=== PATIENT | female | born 1980 | race Caucasian/White ===

== ENCOUNTER → 2017-12-14 16:54 | Outpatient (CLI) | payer OTHER, SELFPAY ==
[2017-12-14 19:12] LABS: Basophils % 0.3 % (0.1-2.0); Eosinophils # 0.2 K/mm3 (0.0-0.4); Eosinophils % 2.9 % (0.1-12.0); Hematocrit 37.4 % (37.0-47.0); Hemoglobin 11.7 g/dL (12.2-16.2); Lymphocytes # 1.8 K/mm3 (0.7-4.5); Lymphocytes % 33.4 K/mm3 (10-50); Mean Corpuscular HGB Conc 31.2 g/dL (31.8-35.4); Mean Corpuscular Hemoglobin 26.1 pg (27.0-31.2); Mean Corpuscular Volume 83.5 fl (81-99); Mean Platelet Volume 8.1 fl (7.4-10.4); Monocytes # 0.3 K/mm3 (0.1-1.0); Monocytes % 4.9 % (1.7-9.3); Neutrophils # 3.1 K/mm3 (1.8-7.8); Neutrophils % 58.5 % (37.0-80.0); Platelet Count 277 K/mm3 (142-424); Red Blood Count 4.49 M/mm3 (4.20-5.40); Red Cell Distribution Width 14.5 % (11.5-17.5); White Blood Count 5.3 K/mm3 (4.8-10.8)
[2017-12-14 20:01] LABS: Alanine Aminotransferase 37 U/L (12-78); Albumin Level 3.5 gm/dL (3.4-5.0); Albumin/Globulin Ratio 1.1 (1.1-1.8); Alkaline Phosphatase 114 U/L (46-116); Anion Gap 10.5 mEq/L (5-15); Aspartate Amino Transferase 27 U/L (15-37); Bilirubin,Total 0.1 mg/dL (0.2-1.0); Blood Urea Nitrogen 16 mg/dL (7-18); Calcium 8.4 mg/dL (8.5-10.1); Carbon Dioxide 29 mmol/L (21.0-32.0); Chloride 107 mmol/L (98-107); Chol/HDL Ratio 2.9 (1-3.5); Cholesterol 153 mg/dL (140-200); Creatinine,Serum 0.71 mg/dL (0.55-1.02); Estimated Glomerular Filt Rate 93 ml/min (>60); GFR (African American) 112 ML/MIN (>60); Globulin 3.1 gm/dl (1.3-3.2); Glucose 124 mg/dL (74-106); HDL Cholesterol 53 mg/dL (29-89); LDL Cholesterol 82 mg/dL (0-130); Potassium 4.5 mmoL/L (3.5-5.1); Sodium 142 mmol/L (136-145); T4 (Thyroxine) 6.9 ug/dl (4.7-13.3); Thyroid Stimulating Hormone 2.54 uIU/ml (0.358-3.740); Total Protein,Serum 6.6 gm/dL (6.4-8.2); Triglycerides 91 mg/dL (30-200); VLDL Cholesterol 18 mg/dL (0-40)
[2017-12-16 11:39] LABS: Vitamin D 25 Hydroxy 8.5 ng/mL (30.0-100.0)
== END ==
PROVIDERS: Visit Provider Physician Assistant
DX: R53.83 Other fatigue (principal)
CPT/HCPCS: 80053; 80061; 82652; 84436; 84443; 85025

== ENCOUNTER 2020-06-27 16:27 | Emergency (ER) | payer OTHER, SELFPAY ==
[2020-06-27 16:42] VITALS: BP 139/78; PULSE 80; RESP 18; TEMP 36.7; O2SAT 98; BMI 58.7
[2020-06-27 17:04] VITALS: BP 139/78; PULSE 80; RESP 18; TEMP 36.7; O2SAT 98
--- NOTE | 2020-06-27 17:12 | HMH.EDUTC ---
[facility] [place] Disposition Clinical Impression: Exposure to COVID-19 virus Disposition: Home, Self-Care Condition on Discharge: Good Instructions: Preventing the Spread of Coronavirus Discharge Instructions Additional Instructions: Drink plenty of fluids. Take tylenol pain or fever. Take the medications as directed. GO TO THE ER FOR ANY WORSENING SYMPTOMS FOLLOW THE DIRECTIONS ON THE COVID-19 HAND OUT THAT WE GAVE YOU REGARDING SELF-ISOLATION UNTIL YOU KNOW YOUR COVID-19 RESULTS Referrals: Rachel Mccrary PA [Primary Care Provider] - Time of Disposition: 17:13 Medical Decision Making - Medical Records Medical records reviewed: No: I reviewed the patient's medical records. - Jett Inquiry Pt receiving controlled substance: No Vital Signs: 06/27/20 16:42 06/27/20 17:04 Temperature 98.0 F 98.0 F Temperature Source Oral Oral Pulse Rate 80 Pulse Rate [Radial] 80 Respiratory Rate 18 18 Blood Pressure 139/78 Blood Pressure [Right Arm] 139/78 Blood Pressure Mean [Right Arm] 98 Blood Pressure Source Automatic Cuff Blood Pressure Source [Right Arm] Automatic Cuff Blood Pressure Position Sitting Blood Pressure Position [Right Arm] Sitting 02 Sat by Pulse Oximetry 98 Oxygen Delivery Method Room Air Room Air [facility] [place] HPI - General Stated complaint: Want COVID teating Time Seen by Provider: 06/27/20 17:12 Mode of Arrival: Ambulatory Source of Information: Patient Limitations: No Limitations Description of Symptoms (Recalled from Triage Doc. by RN): covid test HEENT Symptoms (Recalled from RN notes): No Resp Symptoms (Recalled from RN notes): No Skin Symptoms (Recalled from RN notes): No MS Symptoms (Recalled from RN notes): No Functional Status (Recalled from RN notes): wnl - History of Present Illness Provider Complaint: She thinks that she may have been exposed to covid thru her work. She denies any symptoms. She would like to be tested to be safe. - Related Data Previous Rx's Medication Instructions Recorded omeprazole 40 mg capsule,delayed 40 mg PO DAILY #90 cap 06/27/20 release spironolactone 25 mg tablet 25 mg PO DAILY #90 tab 06/27/20 Allergies Allergy/AdvReac Type Severity Reaction Status Date / Time cephalexin [CEPHALEXIN] Allergy Unknown Verified 06/27/20 09:26 iodine [IODINE] Allergy Unknown Verified 06/27/20 09:26 Penicillins [PENICILLINS] Allergy Unknown Verified 06/27/20 09:26 Sulfa (Sulfonamide Allergy Unknown Verified 06/27/20 09:26 Antibiotics) [SULFA (SULFONAMIDE ANTIBIOTICS)] - Worker's Comp Is this a Worker's Comp case?: No [facility] History - Hepatitis A Screen Drug use history?: No High risk sexual behaviors?: No History of sexually transmitted infection?: No Currently employed?: No Childcare worker?: No Do you have indoor plumbing?: Yes Do you have electricity?: Yes Attestation statement:: This patient has been screened for Hepatitis A risk factors. I have reviewed the patient's past medical history: Yes Medical History: Reports:: Hypertension Denies:: Cancer, Diabetes Mellitus Type 1, Diabetes Mellitus Type 2, MRSA Other Surgeries: Yes: Bariatric Surgery, , Hysterectomy-Total Amputation: No Fractures: No Comment: GALLBLADDER REMOVED - Social History Smoking Status: Never smoker Alcohol Intake: never Alcohol Intake Frequency:: holidays/special occasions only Substance Use Type: denies use Occupational Status: employed Housing: house Household Members: children, spouse Family Hx:: No significant family history ROS Obtained: Yes All systems reviewed & no additional complaints - Constitutional Constitutional: Denies chills, Denies fever(s) - ENT Ears, Nose, Mouth, and Throat: Denies dizziness, Denies otalgia, Denies sore throat - Cardiovascular Cardiovascular: Denies chest pain, Denies dyspnea - Respiratory Respiratory: No chest congestion, No cough Physical Exam - General General appeara
--- NOTE | 2020-06-27 21:11 | PC.NURSE ---
Patient notified of positive COVID results for her and her daughter. Educated on strict quarantine and to treat symptoms as they come.
== END 2020-06-27 17:21 | disposition home or self-care (01) ==
PROVIDERS: Emergency Provider Nurse Practitioner Family; PCP Physician Assistant
DX: U07.1 COVID-19 (principal); I10 Essential (primary) hypertension; Z88.0 Allergy status to penicillin; Z88.2 Allergy status to sulfonamides
CPT/HCPCS: 99201; U0003

== ENCOUNTER → 2020-07-25 14:27 | Outpatient (CLI) | payer OTHER, SELFPAY ==
--- NOTE | 2020-07-25 14:31 | CA_ITS ---
APPROVED REPORT EXAM: Comprehensive 2D, Doppler, and color-flow Echocardiogram Preprint Analyst: Katie Mai RVT Ht: 5 ft 6 in Wt: 364lbs BSA: 2.58 BP: 128/99 mmHg Indications: SOA,HTN,CP,EDEMA,KELLEE,HTN,HLD,HX COVID 2D Dimensions IVSd 0.00 cm F: 0.6-1.0 PWd 4.53 cm F: 0.6 - 1.0 LVDd 0.73 cm F: 3.9 - 5.3 LVOT 1.99 cm (M/F) 1.5-2.5 M-Mode Dimensions RVDd 2.87 cm (0.9-2.6) LA Diam 4.12 cm (1.9-4.0) LVDd 4.54 cm (3.5-5.7) Ao Diam 3.32 cm (2.0-3.7) LVDs 3.02 cm (3.5-5.7) IVSd 1.21 cm (0.6-1.1) PWd 0.87 cm (0.6-1.1) EF (Teich) 62.30% FS 33.50% EDV (Teich) 94.40 mL ESV (Teich) 35.60 mL LV Diastology E Decel Time 147.00 (160-240 msec) E/A Ratio 1.4 MED E' 12.10 (< 7 cm/sec) E'/MED E' Ratio 6.70 (>14) LAT E' 14.10 (<10 cm/sec) E/LAT E' Ratio 5.75 (>14) Mitral Valve MV E Max Liam. 81.00 (40-130 cm/s) MV A Velocity 57.00 (40-130 cm/s) E/A Ratio 1.44 MV Decel. Time 147.00 (160-240 ms) MV PHT 43.00 ms Pulmonary Valve PV Peak Velocity 103.00 (50-150 cm/s) Left Ventricle Left atrium is normal size, left ventricle is normal size, left ventricle wall thickness is upper limit of the normal, there is preserved left ventricular systolic function, visually estimated ejection fraction 55% with no regional wall motion abnormality. Diastolic parameters are within normal range. Right Ventricle Right atrium is normal size, right ventricle is grossly normal with normal contractility. Aortic Valve Aortic valve is minimally thickened and fibrosed, there is no aortic stenosis or aortic insufficiency. Mitral Valve Mitral valve is grossly normal, there is mild mitral regurgitation. Tricuspid Valve Tricuspid valve is grossly normal, there is mild tricuspid regurgitation, tricuspid regurgitation jet velocity is inadequate for calculation of the right ventricular systolic pressure. Pulmonic Valve Pulmonic valve is poorly visualized. Great Vessels Aortic root is normal size. Pericardium No significant pericardial effusion noted. Conclusion 1. Normal left ventricular size, preserved left ventricular systolic function, visually estimated ejection fraction 55% with no regional wall motion abnormality, diastolic parameters are within normal range. 2. Mild mitral and tricuspid regurgitation. 3. No significant pericardial effusion noted. Electronically signed by : Gaetano Bradford, 07/29/2020 05:03:05
== END ==
PROVIDERS: PCP Physician Assistant; Visit Provider Internal Medicine
DX: R07.9 Chest pain, unspecified (principal); R06.00 Dyspnea, unspecified; I10 Essential (primary) hypertension; R60.9 Edema, unspecified; E66.9 Obesity, unspecified; G47.33 Obstructive sleep apnea (adult) (pediatric)
CPT/HCPCS: 93306

== ENCOUNTER → 2020-08-05 15:04 | Outpatient (CLI) | payer OTHER, SELFPAY ==
[2020-08-05 17:07] LABS: Chloride 103 mmol/L (98-107); Potassium 4.4 mmoL/L (3.5-5.1); Sodium 140 mmol/L (136-145)
[2020-08-05 17:10] LABS: Anion Gap 11.4 mEq/L (5-15); Blood Urea Nitrogen 12 mg/dl (7-17); Calcium 8.7 mg/dl (8.4-10.2); Carbon Dioxide 30 mmol/L (22.0-30.0); Estimated Glomerular Filt Rate 80 ml/min (>60); GFR (African American) 97 ML/MIN (>60); Glucose 76 mg/dl (74-100)
[2020-08-05 17:21] LABS: NT Pro Brain Natriuretic Pep. 46.8 pg/mL (0-125)
== END ==
PROVIDERS: Visit Provider Internal Medicine Cardiovascular Disease
DX: R06.00 Dyspnea, unspecified (principal); R07.9 Chest pain, unspecified
CPT/HCPCS: 36415; 80048; 83880

== ENCOUNTER → 2020-10-13 09:03 | Outpatient (CLI) | payer OTHER, SELFPAY ==
--- NOTE | 2020-10-13 09:03 | CT_ITS ---
PROCEDURE: CT ABDOMEN PELVIS WO/W CON CLINICAL INDICATION: right groin pain RLQ PAIN X 1-2 MONTHS 75ML ISO 370 PRIOR 07/04/17 COMPARISON: CT ABDPELW/O CT ABD PELVIS W/O CONTRAST from 07/04/2017 TECHNIQUE: IV Contrast: 75ML Isovue 370 Oral Contrast None Axial images obtained with sagittal and coronal reformats. All CT scans at the facility use one or more dose reduction, viz: automated exposure control, ma/kV adjustment per patient size (including targeted exams where dose is matched to indication, i.e. head), or iterative reconstruction technique. FINDINGS: LOWER THORAX: There is a calcified granuloma within the lingula. ABDOMEN & PELVIS: There has been a prior cholecystectomy. Spleen is enlarged at 15 cm. The liver and adrenal glands are unremarkable. No renal or ureteral calculi. Unremarkable appearing pancreas. There has been a prior gastric bypass. There are few scattered small mesenteric lymph nodes. No evidence of appendicitis. There is a mild amount of retained colonic feces in the rectosigmoid region with a few colonic diverticula noted but no evidence of diverticulitis. There has been a prior hysterectomy. There is some minimal stranding of the fat in the pelvic region on the left having a somewhat similar appearance on 07/04/2017. This may be due to post surgical change. No acute bony finding. There postsurgical changes of the anterior abdominal wall with multiple clips IMPRESSION: 1. No acute finding. No evidence of appendicitis or obstructing ureteral calculus. 2. Mild amount of retained colonic feces in the rectosigmoid region with a few scattered colonic diverticula but no evidence of diverticulitis. 3. Prior hysterectomy with mild stranding of the pelvic fat on the left nonspecific but may be due to postsurgical changes. Dictated by: Jimmy Martinez MD 10/14/2020 13:37 Jimmy Martinez MD in [facility] 10/14/2020 13:37
== END ==
PROVIDERS: PCP Physician Assistant; Visit Provider Physician Assistant
DX: R10.31 Right lower quadrant pain (principal)
CPT/HCPCS: 74178; Q9967

== ENCOUNTER → 2020-11-11 18:54 | Outpatient (CLI) | payer OTHER, SELFPAY ==
[2020-11-11 19:22] LABS: Basophils % 0.4 % (0.1-2.0); Eosinophils # 0.2 K/mm3 (0.0-0.4); Hematocrit 41.2 % (37.0-47.0); Hemoglobin 13.3 g/dL (12.2-16.2); Lymphocytes % 30.5 % (10-50); Mean Corpuscular HGB Conc 32.3 g/dL (31.8-35.4); Mean Corpuscular Hemoglobin 28.1 pg (27.0-31.2); Mean Platelet Volume 8.1 fl (7.4-10.4); Monocytes # 0.4 K/mm3 (0.1-1.0); Monocytes % 5.9 % (1.7-9.3); Neutrophils % 60.2 % (37.0-80.0); Platelet Count 282 K/mm3 (142-424); Red Blood Count 4.73 M/mm3 (4.20-5.40); Red Cell Distribution Width 14.2 % (11.5-17.5); White Blood Count 6.7 K/mm3 (4.8-10.8)
[2020-11-11 19:40] LABS: 25-OH Vitamin D, Total 17.8 ng/mL (30-100)
[2020-11-11 19:50] LABS: Coronavirus 19 IgG Antibody Positive (Negative); Coronavirus 19 IgM Antibody Negative (Negative)
[2020-11-11 19:51] LABS: Monoscreen (Rapid) Negative (Negative)
[2020-11-11 20:00] LABS: Chloride 104 mmol/L (98-107); Potassium 4.8 mmoL/L (3.5-5.1); Sodium 139 mmol/L (136-145)
[2020-11-11 20:02] LABS: Alanine Aminotransferase 29 U/L (12-78); Aspartate Amino Transferase 28 U/L (14-36); Blood Urea Nitrogen 16 mg/dl (7-17); Estimated Glomerular Filt Rate 70 ml/min (>60); GFR (African American) 84 ML/MIN (>60)
[2020-11-11 20:03] LABS: Albumin Level 4.1 g/dl (3.5-5.0); Albumin/Globulin Ratio 1.6 (1.1-1.8); Alkaline Phosphatase 94 U/L (38-126); Anion Gap 10.8 mEq/L (5-15); Bilirubin,Total 0.3 mg/dl (0.2-1.3); Carbon Dioxide 29 mmol/L (22.0-30.0); Chol/HDL Ratio 3.1 (1-3.5); Cholesterol 140 mg/dl (140-200); Globulin 2.6 g/dL (1.3-3.2); Glucose 73 mg/dl (74-100); HDL Cholesterol 45 mg/dl (40-60); Total Protein,Serum 6.7 g/dl (6.3-8.2); Triglycerides 119 mg/dl (30-150); VLDL Cholesterol 24 mg/dL (0-40)
[2020-11-11 20:09] LABS: C-Reactive Protein 8.6 mg/L (0-4)
[2020-11-11 20:14] LABS: Direct LDL Cholesterol 64.03 mg/dL (100-129)
[2020-11-11 20:19] LABS: Free T4 (Free Thyroxine) 1.04 ng/dl (0.78-2.19)
[2020-11-11 20:23] LABS: Erythrocyte Sedimentation Rate 15 mm/hr (0-20)
[2020-11-11 20:34] LABS: Thyroid Stimulating Hormone 2.89 uIU/mL (0.465-4.68)
[2020-11-14 18:38] LABS: RA Latex Turbid. <10.0 IU/mL (0.0-13.9)
== END ==
PROVIDERS: Visit Provider Physician Assistant
DX: R06.00 Dyspnea, unspecified (principal); R10.9 Unspecified abdominal pain; I10 Essential (primary) hypertension; M79.89 Other specified soft tissue disorders; E55.9 Vitamin D deficiency, unspecified; R53.83 Other fatigue; R51.9 Headache, unspecified
CPT/HCPCS: 80053; 80061; 82306; 84439; 84443; 85025; 85651; 86140; 86318; 86328; 86431

== ENCOUNTER → 2020-11-25 08:04 | Outpatient (CLI) | payer OTHER, SELFPAY ==
--- NOTE | 2020-11-25 08:04 | MR_ITS ---
PROCEDURE: MR HIP RT WO CON CLINICAL INDICATION: right groin pain ? bursitis/tendinopathy Constant pain. Symptoms [id number]. No injury. Prior CT 10-13-20. COMPARISON: CT CT ABDOMEN PELVIS WO/W CON from 10/13/2020 TECHNIQUE: Routine multiplanar multi echo sequences are performed without gadolinium enhancement. FINDINGS: There are minimal osteoarthritic changes of the hips. No fracture or dislocation. No lytic or blastic change. No evidence of avascular necrosis. No significant effusion. No abnormal fluid collections or soft tissue masses. The surrounding musculature has an unremarkable appearance. There are post hysterectomy changes. There are incidental small areas of T1 hyperintensity within the ilium on both sides and in the right ischium which show fat suppression consistent with small incidental lipomas. IMPRESSION: Mild osteoarthritic changes of the hips. No acute finding. Dictated by: Jimmy Martinez MD 11/28/2020 11:31 Jimmy Martinez MD in [facility] 11/28/2020 11:31
--- NOTE | 2020-11-25 08:56 | MM_ITS ---
PROCEDURE: MM DIG SCREENING MAMM BI W/CAD Digital Breast Tomosynthesis Included CLINICAL INDICATION: Breast cancer screening by mammogram There is a history of breast cancer in the patient's maternal great aunt. COMPARISON: This is a baseline screening exam, patient without complaints. TECHNIQUE: Standard CC and MLO images and 3D Tomosynthesis was obtained. R2 CAD reviewed. FINDINGS: The breasts are composed primarily of minimal scattered fibroglandular densities throughout each breast. There is a benign-appearing calcification near the nipple left breast. There is no suspicious lesion and no suspicious microcalcifications. IMPRESSION: Fatty type breast parenchyma with no suspicious lesions seen BI-RAD Category: 1 Negative FOLLOW-UP: 1YR 1 Year Follow-up (A letter has been sent to the patient regarding results of the study.) Dictated by: Dr. Richard Sharp MD 11/30/2020 11:04 Dr. Richard Sharp MD in [facility] 11/30/2020 11:04
== END ==
PROVIDERS: PCP Physician Assistant; Visit Provider Physician Assistant
DX: Z12.31 Encounter for screening mammogram for malignant neoplasm of breast (principal); R10.31 Right lower quadrant pain; M25.551 Pain in right hip
CPT/HCPCS: 73721; 77063; 77067

== ENCOUNTER → 2020-12-29 13:09 | Outpatient (CLI) | payer OTHER, SELFPAY ==
--- NOTE | 2020-12-29 13:17 | XR_ITS ---
PROCEDURE: XR HIP RT 2-3V W/PELVIS CLINICAL INDICATION: Rt hip pain COMPARISON: MR MR HIP RT WO CON from 11/25/2020 FINDINGS: No obvious fracture or dislocation. Study is somewhat limited technically due to patient's body habitus. No obvious lytic or blastic change. No significant degenerative change. Surgical clips are present along the lower abdominal region. IMPRESSION: No acute findings. Dictated by: Jimmy Martinez MD 12/29/2020 13:35 Jimmy Martinez MD in [facility] 12/29/2020 13:35
== END ==
PROVIDERS: PCP Physician Assistant; Visit Provider Orthopaedic Surgery
DX: M25.551 Pain in right hip (principal)
CPT/HCPCS: 73502

== ENCOUNTER 2020-12-30 11:00 | Outpatient (RCR) | payer OTHER, SELFPAY | END 2020-12-30 11:05 | disposition home or self-care (01) | LOC: PT 11:00 | PROVIDERS: PCP Physician Assistant; Visit Provider Physician Assistant | DX: R10.31 Right lower quadrant pain (principal); M25.551 Pain in right hip | CPT/HCPCS: 97010; 97014; 97035; 97110; 97163; 97164; G0283 ==

== ENCOUNTER → 2021-06-03 09:33 | Outpatient (CLI) | payer OTHER, SELFPAY | PROVIDERS: PCP Physician Assistant; Visit Provider Nurse Practitioner | DX: Z20.822 Contact with and (suspected) exposure to COVID-19 (principal) | CPT/HCPCS: C9803; U0003; U0005 ==

== ENCOUNTER → 2021-12-18 07:50 | Outpatient (CLI) | payer OTHER, SELFPAY | PROVIDERS: Visit Provider Physician Assistant | DX: Z20.822 Contact with and (suspected) exposure to COVID-19 (principal) | CPT/HCPCS: C9803; U0003; U0005 ==

== ENCOUNTER → 2022-03-15 08:47 | Outpatient (CLI) | payer OTHER, SELFPAY | PROVIDERS: PCP Physician Assistant; Visit Provider Physician Assistant | DX: Z20.822 Contact with and (suspected) exposure to COVID-19 (principal) | CPT/HCPCS: C9803; U0003; U0005 ==

== ENCOUNTER → 2022-03-26 07:52 | Outpatient (CLI) | payer OTHER, SELFPAY ==
[2022-03-26 09:04] LABS: Chloride 103 mmol/L (98-107); Potassium 3.7 mmoL/L (3.5-5.1); Sodium 138 mmol/L (136-145)
[2022-03-26 09:07] LABS: Anion Gap 6.7 mEq/L (5-15); Blood Urea Nitrogen 14 mg/dl (7-17); Calcium 8.8 mg/dl (8.4-10.2); Carbon Dioxide 32 mmol/L (22.0-30.0); Estimated Glomerular Filt Rate 110 ml/min (>60); GFR (African American) 133 ML/MIN (>60); Glucose 125 mg/dl (74-100)
[2022-03-26 09:16] LABS: NT Pro Brain Natriuretic Pep. 34.6 pg/mL (0-125)
== END ==
PROVIDERS: PCP Physician Assistant; Visit Provider Internal Medicine Cardiovascular Disease
DX: Z01.810 Encounter for preprocedural cardiovascular examination (principal); R06.02 Shortness of breath; I10 Essential (primary) hypertension; M79.89 Other specified soft tissue disorders
CPT/HCPCS: 36415; 80048; 83880; 93306

== ENCOUNTER → 2022-12-10 16:30 | Outpatient (CLI) | payer BC, SELFPAY ==
--- NOTE | 2022-12-10 16:31 | MM_ITS ---
PROCEDURE INFORMATION: Exam: MG Bilateral Screening 3D Mammography Exam date and time: 12/10/2022 4:27 PM Age: 42 years old Clinical indication: Screening examination. Her maternal aunt had breast cancer. TECHNIQUE: Imaging protocol: Bilateral Screening tomosynthesis and 2D mammography including computer-aided detection (CAD) when performed. COMPARISON: MG MM DIG SCREENING MAMM BI W/CAD 11/25/2020 9:04 AM FINDINGS: MAMMOGRAPHY: Breast composition: There are scattered areas of fibroglandular density. Mass: None. Architectural distortion: None. Calcifications: No suspicious calcifications. Asymmetric density: None. Skin thickening: None. Axillary adenopathy: None. IMPRESSION: No mammographic evidence of malignancy. Annual screening is recommended unless otherwise clinically indicated. ASSESSMENT: BI-RADS Category 1: Negative
== END ==
PROVIDERS: PCP Physician Assistant; Visit Provider Physician Assistant
DX: Z12.31 Encounter for screening mammogram for malignant neoplasm of breast (principal)
CPT/HCPCS: 77063; 77067

== ENCOUNTER 2025-04-23 15:09 | Outpatient (CLI) | payer BC, SELFPAY ==
--- OUTSIDE RECORDS SUMMARY | 2025-04-09 10:30 | XMS_ITS | Encounter Summary ---
Author Organization [facility] Address [address] [place] [address] Care Team Providers Care Business Technology Professor Name Role Phone Rachel Mccrary Primary Care Provider [phone] Encounter Details Date Type Department Care Team (Late st Contact Info) Description 04/09/2025 10:30 AM EDT Office Visit [facility] BARI[facility]RIC SURGERY [address] [facility] [address] [place] [address] Faye Hector APRN [address] [place] [address] Obesity, Class III, BMI 40-49.9 (morbid obesity) (Primary Dx); Intestinal malabsorption, unspecified type; Vitamin D deficiency; Fatigue, unspecified type; Abnormal blood level of iron Social History Tobacco Use Types Packs/Day Years Used Date Smoking Tobacco: Never Smokeless Tobacco: Never Tobacco Cessation:Counseling Given: Not Answered Alcohol Use Standard Drinks/Week Comments Not Currently 0 (1 standard drink = 0.6 oz pur e alcohol) RARE AUDIT-C Answer Date Recorded Q1: How often do you have a drink containing alc ohol? Monthly or less 02/03/2023 Q2: How many drinks containi ng alcohol do you have on a typical day when you are drinking? 1 or 2 02/03/2023 Q3: How often do you have si x or more drinks on one occasion? Never 02/03/2023 Abuse Screen Answer Date Recorded Feels Unsafe at Home or Work/School no 02/03/2023 Feels Threatened by Someone no 01/17 Does Anyone Try to Keep You From Having Contact with Others or Doing Things Outside Your Home? no 02/03/2023 Physical Signs of Abuse Present no 02/03/2023 Housing Stability Answer Date Recorded Current Living Arrangements home 01/17 Potentially Unsafe Housing Conditions Not on charo e 02/03/2023 Disabilities Answer Date Recorded Difficulty Concentrating, Remembering or Making Decisions no 02/03/2023 Difficulty Managing Errands Independently no 02/03/2023 Education Answer Date Recorded Help with school or training? Not on file Preferred Language [place] Citizen 01/27/2023 Comments No Sex and Gender Information Value Date Recorded Sex Assigned at Female 04/08/2025 12:20 PM EDT Legal Sex Female 11:57 AM EDT Gender Identity Not on file Sexual Orientation Straight 04/08/2025 12 :20 PM EDT documented as of this encounter Last Filed Vital Signs Vital Sign Reading Time Taken Comments Blood Pressure 124/70 04/09/2025 10:27 AM EDT Pulse 78 04/09/2025 10:27 AM EDT Temperature 36.7 C (98 F) 04/09/2025 10:27 AM EDT Respiratory Rate 16 04/09/2025 10:27 AM EDT Oxygen Saturation 98% 04/09/2025 10:27 AM EDT Inhaled Oxygen Concentration - - Weight 129 kg (285 lb 6.4 oz) 04/09/2025 10:27 A M EDT Height 163.8 cm (5' 4.5 ) 04/09/2025 10:27 AM ED T Body Mass Index 48.23 04/09/2025 10:27 AM EDT documented in this encounter Progress Notes * Faye Hector APRN - 04/09/2025 10:30 AM EDTAddended by: FAYE HECTOR on: 04/15/2025 10:56 AM Modules accepted: Orders * Faye Hector APRN - 04/09/2025 10:30 AM EDT [facility] Bariatric Surgery [address] [place] [address] [facility] [address] Patient Name: Cece Lee : 1980 Date of Visit: 04/09/2025 Reason for Visit: Annual Eval - 2 year postop HPI: Cece Lee is a 44 y.o. female s/p lap RNY revision w/ BPD/DS + appy 02/03/23 GDW (hx open RNY 2000 Dr. Khan). Has not been focusing on anything over the past year - Getting ??g prot/day. Does not track intake,does not prioritize protein. Eats small, frequent meals. Drinking 64 fluid oz/day- water, coffee, diet coke. Physical activity: walking 3x/wk. Denies dysphagia, reflux, nausea, vomiting, and abdominal pain. Having BM after every meal- urgent,malodorous Labs 01/17/24- low vit D, high PTH, low prealbumin (16), low calcium, low hgb. Advised to start vit D 5000u daily, increase calcium to 2400 mg daily. Taking no vitamins. Presurgery weight: 362 lbs. Current weight: 285 lbs. Total weight loss: 77 lbs. Past Medical History: Diagnosis Date Anxiety and depression Arthralgia of both knees prn tylenol, nsaids Chronic back pain PRN tylenol, nsaids; no steroids Chronic headaches Chronic RLQ pain Diarrhea Dyspepsia Endometriosis s/p lap total hysterectomy 2011 Heartburn chronic, episodic; Alkaseltezer PRN History of blood transfusion 2010 4 units prior to delivery, [facility], no reacitons History of COVID-2019 Hypertension Iron deficiency anemia hx of blood transfusion Numbness and tingling of both upper extremities KELLEE on CPAP PCOS (polycystic ovarian syndrome) S/P laparoscopic cholecystectomy 2002 gallstones Stress incontinence of urine Past Surgical History: Procedure Laterality Date APPENDECTOMY N/A 02/03/2023 Procedure: INCIDENTAL APPENDECTOMY LAPAROSCOPIC; Surgeon: Julius Ventura MD; Location: [facility]; Service: General; Laterality: N/A; SECTION 2006 SECTION 2008 SECTION 2009 ENDOSCOPY N/A 10/07/2022 Procedure: ESOPHAGOGASTRODUODENOSCOPY WITH BIOPSY; Surgeon: Julius Ventura MD; Location: [facility]; Service: General; Laterality: N/A; ENDOSCOPY N/A 02/03/2023 Procedure: ESOPHAGOGASTRODUODENOSCOPY; Surgeon: Julius Ventura MD; Location: [facility]; Service: Bariatric; Laterality: N/A; Scope ID [id number] GASTRIC BYPASS N/A 02/03/2023 Procedure: BILIOPANCREATIC DIVERSON WITH DUODENAL SWITCH LAPAROSCOPIC; Surgeon: Julius Ventura MD; Location: [facility]; Service: Bariatric; Laterality: N/A; GASTRIC BYPASS OPEN 2000 RNY; Dr. Gustavo Khan; open GASTRIC BYPASS REVISION N/A 02/03/2023 Procedure: GASTRIC BYPASS LAPAROSCOPIC REVISION; Surgeon: Julius Ventura MD; Location: [facility]; Service: Bariatric; Laterality: N/A; LAPAROSCOPIC CHOLECYSTECTOMY 2002 gallstones MOUTH SURGERY 1998 wisdom teeth TOTAL LAPAROSCOPIC HYSTERECTOMY 2011 No outpatient medications have been marked as taking for the 04/09/25 encounter (Office Visit) with Faye Hector APRN. Allergies Allergen Reactions Cephalexin Anaphylaxis Penicillins Rash Estradiol Hives patch - adhesive rxn Shellfish-Derived Products Unknown - Low Severity Scratchy throat Iodine Rash rxn during CT scan Sulfa Antibiotics Rash Social History Socioeconomic History Marital status: Tobacco Use Smoking status: Never Smokeless tobacco: Never Vaping Use Vaping status: Never Used Substance and Sexual Activity Alcohol use: Not Currently Comment: RARE Drug use: Never Sexual activity: Defer Partners: Male control/protection: Vasectomy, Hysterectomy Social History Social History Narrative Lives in [place] w/ and 3 children. 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 BP 124/70 (BP Location: Left arm, Patient Position: Sitting) Pulse 78 Temp 98 ??F (36.7 ??C) Resp 16 Ht 163.8 cm (64.5 ) Wt 129 kg (285 lb 6.4 oz) SpO2 98% BMI 48.23 kg/m?? Physical Exam Constitutional: Appearance: She is well-developed. Cardiovascular: Rate and Rhythm: Normal rate. Pulmonary: Effort: Pulmonary effort is normal. Musculoskeletal: General: Normal range of motion. Neurological: Mental Status: She is alert. Psychiatric: Thought Content: Thought content normal. Judgment: Judgment normal. Assessment: 2 years s/p lap RNY revision w/ BPD/DS + appy 02/03/23 GDW (hx open RNY 2000 Dr. Khan). ICD-10-CM ICD-9-CM 1. Obesity, Class III, BMI 40-49.9 (morbid obesity) E66.813 278.01 2. Intestinal malabsorption, unspecified type K90.9 579.9 3. Vitamin D deficiency E55.9 268.9 4. Fatigue, unspecified type R53.83 780.79 5. Abnormal blood level of iron R79.0 790.6 Class 3 Severe Obesity (BMI >=40). Obesity-related health conditions include the following: see above. Obesity is improving with treatment. BMI is is above average; BMI management plan is completed. We discussed see plan. Plan: Refocus on making good food choices and healthy habits. Encouraged tracking intake. Increase protein to 100+g/day. Less carbs than protein. 1600- 1700 amado/day. Increase exercise/strength training as able. Discussed importance of lifelong vitamin supplementation- handout given. Bariatric labs ordered. Adjustments pending lab results. I spent 30 minutes caring for Cece on this date of service. This time includes time spent by me inthe following activities: preparing for the visit, reviewing tests, obtaining and/or reviewing a separately obtained history, performing a medically appropriate examination and/or evaluation, counseling and educating the patient/family/caregiver, ordering medications, tests, or procedures, and documenting information in the medical record. Faey Hector APRN documented in this encounter Plan of Treatment Upcoming Encounters Date Type Department Care Team (Late st Contact Info) Description 10/15/2025 10:30 AM EST Office Visit [facility] BARI[facility]RIC SURGERY [address] [facility] [address] [place] [address] Faye Hector APRN [address] [facility] [address] [place] [address] documented as of this encounter Procedures Procedure Name Priority Date/Time Associated Diagnosis Comments METHYLMALONIC ACID, SERUM Routine 04/09/2025 10:59 AM EDT Obesity, Class III, BMI 40-49.9 (morbid obesity) Intestinal malabsorption, unspecified type Vitamin D deficiency Fatigue, unspecified type Abnormal blood level of iron COPPER, SERUM Routine 04/09/2025 10:59 AM EDT Obesity, Class III, BMI 40-49.9 (morbid obesity) Intestinal malabsorption, unspecified type Vitamin D deficiency Fatigue, unspecified type Abnormal blood level of iron VITAMIN B1, WHOLE BLOOD Routine 04/09/2025 10:59 AM EDT Obesity, Class III, BMI 40-49.9 (morbid obesity) Intestinal malabsorption, unspecified type Vitamin D deficiency Fatigue, unspecified type Abnormal blood level of iron ZINC Routine 04/09/2025 10:59 AM EDT Obesity, Class III, BMI 40-49.9 (morbid obesity) Intestinal malabsorption, unspecified type Vitamin D deficiency Fatigue, unspecified type Abnormal blood level of iron VITAMIN A Routine 04/09/2025 10:59 AM EDT Obesity, Class III, BMI 40-49.9 (morbid obesity) Intestinal malabsorption, unspecified type Vitamin D deficiency Fatigue, unspecified type Abnormal blood level of iron VITAMIN K1 Routine 04/09/2025 10:59 AM EDT Obesity, Class III, BMI 40-49.9 (morbid obesity) Intestinal malabsorption, unspecified type Vitamin D deficiency Fatigue, unspecified type Abnormal blood level of iron VITAMIN D,25-HYDROXY Routine 04/09/2025 10:59 AM EDT Obesity, Class III, BMI 40-49.9 (morbid obesity) Intestinal malabsorption, unspecified type Vitamin D deficiency Fatigue, unspecified type Abnormal blood level of iron PROTIME-INR Routine 04/09/2025 10:59 AM EDT Obesity, Class III, BMI 40-49.9 (morbid obesity) Intestinal malabsorption, unspecified type Vitamin D deficiency Fatigue, unspecified type Abnormal blood level of iron CBC AND DIFFERENTIAL Routine 04/09/2025 10:59 AM EDT Obesity, Class III, BMI 40-49.9 (morbid obesity) Intestinal malabsorption, unspecified type Vitamin D deficiency Fatigue, unspecified type Abnormal blood level of iron VITAMIN E Routine 04/09/2025 10:59 AM EDT Obesity, Class III, BMI 40-49.9 (morbid obesity) Intestinal malabsorption, unspecified type Vitamin D deficiency Fatigue, unspecified type Abnormal blood level of iron PREALBUMIN Routine 04/09/2025 10:59 AM EDT Obesity, Class III, BMI 40-49.9 (morbid obesity) Intestinal malabsorption, unspecified type Vitamin D deficiency Fatigue, unspecified type Abnormal blood level of iron PHOSPHORUS Routine 04/09/2025 10:59 AM EDT Obesity, Class III, BMI 40-49.9 (morbid obesity) Intestinal malabsorption, unspecified type Vitamin D deficiency Fatigue, unspecified type Abnormal blood level of iron PTH, INTACT Routine 04/09/2025 10:59 AM EDT Obesity, Class III, BMI 40-49.9 (morbid obesity) Intestinal malabsorption, unspecified type Vitamin D deficiency Fatigue, unspecified type Abnormal blood level of iron MAGNESIUM Routine 04/09/2025 10:59 AM EDT Obesity, Class III, BMI 40-49.9 (morbid obesity) Intestinal malabsorption, unspecified type Vitamin D deficiency Fatigue, unspecified type Abnormal blood level of iron IRON Routine 04/09/2025 10:59 AM EDT Obesity, Class III, BMI 40-49.9 (morbid obesity) Intestinal malabsorption, unspecified type Vitamin D deficiency Fatigue, unspecified type Abnormal blood level of iron FOLATE Routine 04/09/2025 10:59 AM EDT Obesity, Class III, BMI 40-49.9 (morbid obesity) Intestinal malabsorption, unspecified type Vitamin D deficiency Fatigue, unspecified type Abnormal blood level of iron FERRITIN Routine 04/09/2025 10:59 AM EDT Obesity, Class III, BMI 40-49.9 (morbid obesity) Intestinal malabsorption, unspecified type Vitamin D deficiency Fatigue, unspecified type Abnormal blood level of iron COMPREHENSIVE METABOLIC PANEL Routine 04/09/2025 10:59 AM EDT Obesity, Class III, BMI 40-49.9 (morbid obesity) Intestinal malabsorption, unspecified type Vitamin D deficiency Fatigue, unspecified type Abnormal blood level of iron documented in this encounter Results * Zinc (04/09/2025 10:59 AM EDT) Zinc 58 44 - 115 ug/dL [facility] Comment:Detection Limit = 5 Blood 04/09/2025 10:5 9 AM EDT 04/09/[address] [facility] (AMBULATORY) - 04/12/2025 10:07 PM EDT Test(s) 662085-Ktzh, Plasma or Serum was developed and its performance characteristics determined by [facility]. It has not been cleared or approved by the Food and Drug Administration. Performed at: 03 - [address] [id number] Preventive Medicine Specialist: Yinka Suarez MD, Phone: [phone] Patient Fasting: N Faye Hector APRN LAB BLOOD ORDERABLES Final Res ult [facility] (AMBULATORY) [address] [place] [address], [facility] [address] [place] [address], * (ABNORMAL) Vitamin K1 (04/09/2025 10:59 AM EDT) Vitamin K <0.10(L) 0.10 - 2.20 ng/mL [facility] Blood 04/09/2025 10:5 9 AM EDT 04/09/2025 Narrative [facility] - 04/12/2025 10:07 PM EDT Test(s) 539377-Ekohdwz K1 was developed and its performance characteristics determined by [facility]. It has not been cleared or approved by the Food and Drug Administration. Performed at: 03 - [facility] [id number] Preventive Medicine Specialist: Yinka Suarez MD, Phone: [phone] Patient Fasting: N us Faye Hector APRN LAB BLOOD ORDERABLES Final Res ult Performing Organization Address City/[facility]/ZIP Co de Phone Number [facility] [address] [place] [address], [place] [phone] [facility] [address] [place] [address], [place] [phone] * Vitamin E (04/09/2025 10:59 AM EDT) [facility] Vitamin E (Alpha Tocopherol) 8.0 7.0 - 25.1 mg/L [facility] Vitamin E (Gamma Tocopherol) 0.5 0.5 - 5.5 mg/L [facility] Comment: Reference intervals for alpha and gamma-tocopherol determined from National Health and Nutrition Examination Survey, 1603-4851. Individuals with alpha-tocopherol levels less than 5.0 mg/L are considered vitamin E deficient. Blood 04/09/2025 10:5 9 AM EDT 04/09/2025 Narrative [facility] (AMBULATORY) - 04/12/2025 10:07 PM EDT Test(s) 278186-Tzfkhdr E(Alpha Tocopherol); 474053- Vitamin E(Gamma Tocopherol) was developed and its performance characteristics determined by [facility]. It has not been cleared or approved by the Food and Drug Administration. Performed at: 03 - [facility] [id number] Preventive Medicine Specialist: Yinka Suarez MD, Phone: [phone] Patient Fasting: N us Faye Hector APRN LAB BLOOD ORDERABLES Final Res ult [facility] [address] [place] [address], [place] [phone] [facility] [address] [place] [address], [place] [phone] * (ABNORMAL) Vitamin D,25-Hydroxy (04/09/2025 10:59 AM EDT) 25 Hydroxy, Vitamin D 8.9(L) 30.0 - 100.0 ng/ml [facility] Comment: Reference Range for Total Vitamin D 25(OH) Deficiency <20.0 ng/mL Insufficiency 21-29 ng/mL Sufficiency 30-100 ng/mL Toxicity >100 ng/ml Blood 04/09/2025 10:5 9 AM EDT 04/09/2025 Narrative [facility] - 04/12/2025 10:07 PM EDT Performed at: [address] [id number] Preventive Medicine Specialist: Vernon Garcia MD, Phone: [phone] Patient Fasting: N Faye Hector APRN LAB BLOOD ORDERABLES Final Res ult [facility] [address] [place] [address], [facility] [address] [place] [address], [place] [phone] * Vitamin B1, Whole Blood (04/09/2025 10:59 AM EDT) [facility] Vitamin B1, Whole Blood 144.3 66.5 - 200.0 nmol/L [facility] Blood 04/09/2025 10:5 9 AM EDT 04/09/[address] [facility] (AMBULATORY) - 04/12/2025 10:07 PM EDT Test(s) 789657-Zes. B1, Whole Blood was developed and its performance characteristics determined by [facility]. It has not been cleared or approved by the Food and Drug Administration. Performed at: 03 - [address] [id number] Preventive Medicine Specialist: Yinka Suarez MD, Phone: [phone] Patient Fasting: N Faye Hector APRN LAB BLOOD ORDERABLES Final Res ult Performing Organization Address City/[facility]/ZIP Co de Phone Number [facility] [address] [place] [address], [facility] [address] [place] [address], * Vitamin A (04/09/2025 10:59 AM EDT) Vitamin A 26.2 20.1 - 62.0 ug/dL [facility] Comment: Reference intervals for vitamin A determined from [facility] internal studies. Individuals with vitamin A less than 20 ug/dL are considered vitamin A deficient and those with serum concentrations less than 10 ug/dL are considered severely deficient. This test was developed and its performance characteristics determined by [facility]. It has not been cleared or approved by the Food and Drug Administration. Blood 04/09/2025 10:5 9 AM EDT 04/09/[address] [facility] (AMBULATORY) - 04/12/2025 10:07 PM EDT Performed at: 03 - [address] [id number] Preventive Medicine Specialist: Yinka Suarez MD, Phone: [phone] Patient Fasting: N us Faye Hector APRN LAB BLOOD ORDERABLES Final Res ult Performing Organization Address City/[facility] Co de Phone Number [facility] [address] [place] [address], [facility] [address] [place] [address], * PTH, Intact (04/09/2025 10:59 AM EDT) PTH, Intact 39 15 - 65 pg/mL [facility] Blood 04/09/2025 10:5 9 AM EDT 04/09/2025 [facility] (AMBULATORY) - 04/12/2025 10:07 PM EDT Performed at: 04 - [facility] [address] [place], [place] [id number] Preventive Medicine Specialist: Bradley Guerra PhD, Phone: [phone] Patient Fasting: N Faye Hector APRN LAB BLOOD ORDERABLES Final Res ult [facility] [address] [place] [address], [place] [phone] [facility] [address] [place] [address], * Protime-INR (04/09/2025 10:59 AM EDT) INR 0.96 0.89 - 1.12 [facility] Comment: Therapeutic Ranges for INR:/X09/2.0-3.0 (PT 20-30) 2.5-3.5 (PT 25-34) Protime 13.4 12.2 - 15.3 Seconds [facility] Blood 04/09/2025 10:5 9 AM EDT 04/09/2025 Narrative [facility] ([facility]) - 04/12/2025 10:07 PM EDT Performed at: [address] [place] [id number] Preventive Medicine Specialist: Kenneth Cha MD, Phone: [phone] Patient Fasting: N Faye Hector APRN LAB BLOOD ORDERABLES Final Res ult Performing Organization Address City/[facility]/ZIP Co de Phone Number [facility] [address] [place] [address], [place] [phone] [facility] [address] [place] [address], [place] [phone] * Prealbumin (04/09/2025 10:59 AM EDT) Prealbumin 18 12 - 34 mg/dL [facility] Blood 04/09/2025 10:5 9 AM EDT 04/09/[address] [facility] (AMBULATORY) - 04/12/2025 10:07 PM EDT Performed at: [address] [place], [place] [id number] [place], [place] [id number] Preventive Medicine Specialist: Bradley Guerra PhD, Phone: [phone] Patient Fasting: N Faye Hector APRN LAB BLOOD ORDERABLES Final Res ult Performing Organization Address [facility] de Phone Number [facility] [address] [place] [address], [place] [phone] [facility] [address] [place] [address], [place] [phone] * (ABNORMAL) Phosphorus (04/09/2025 10:59 AM EDT) Phosphorus 2.4(L) 2.5 - 4.5 mg/dL [facility] Blood 04/09/2025 10:5 9 AM EDT 04/09/[address] [facility] (AMBULATORY) - 04/12/2025 10:07 PM EDT Performed at: [address] [place] [id number] Preventive Medicine Specialist: Vernon Garcia MD, Phone: [phone] Patient Fasting: N Faye Hector APRN LAB BLOOD ORDERABLES Final Res ult Performing Organization Address [facility] Co de Phone Number [facility] [address] [place] [address], [place] [phone] [facility] [address] [place] [address], [place] [phone] * Methylmalonic Acid, Serum (04/09/2025 10:59 AM EDT) Methylmalonic Acid 318 0 - 378 nmol/L [facility] Blood 04/09/2025 10:5 9 AM EDT 04/09/2025 [facility] (AMBULATORY) - 04/12/2025 10:07 PM EDT Test(s) 064666-Rcylueibfergy Acid, Serum was developed and its performance characteristics determined by [facility]. It has not been cleared or approved by the Food and Drug Administration. Performed at: 03 - [facility] [id number] Preventive Medicine Specialist: Yinka Suarez MD, Phone: [phone] Patient Fasting: N Faye Grimaldodebbie CANTORN LAB BLOOD ORDERABLES Final Res ult Performing Organization Address [facility] de Phone Number [facility] (AMBULATORY) [address] [place] [address], [facility] [address] [place] [address], * Magnesium (04/09/2025 10:59 AM EDT) Magnesium 1.9 1.6 - 2.6 mg/dL [facility] Blood 04/09/2025 10:5 9 AM EDT 04/09/2025 Narrative [facility]) - 04/12/2025 10:07 PM EDT Performed at: [address] [place] [id number] Preventive Medicine Specialist: Vernon Garcia MD, Phone: [phone] Patient Fasting: N Faye Hector APRN LAB BLOOD ORDERABLES Final Res ult Performing Organization Address [facility] de Phone Number [facility] (AMBULATORY) [address] [place] [address], [facility] [address] [place] [address], * Iron (04/09/2025 10:59 AM EDT) Iron 64 37 - 145 mcg/dL [facility] Blood 04/09/2025 10:5 9 AM EDT 04/09/2025 Narrative [facility] ([facility]) - 04/12/2025 10:07 PM EDT Performed at: [address] [place] [id number] Preventive Medicine Specialist: Vernon Garcia MD, Phone: [phone] Patient Fasting: N [employer] REPAIR WORKER LAB BLOOD ORDERABLES Final Res ult Performing Organization Address City/[facility]/ZIP Co de Phone Number [facility] (AMBULATORY) [address] [place] [address], [place] [phone] [facility] [address] [place] [address], [place] [phone] * Folate (04/09/2025 10:59 AM EDT) Pathologist [facility] Folate 16.10 4.78 - 24.20 ng/mL [facility] Comment:Results may be false ly increased if patient taking Biotin. Blood 04/09/2025 10:5 9 AM EDT 04/09/2025 Narrative [facility] (AMBULATORY) - 04/12/2025 10:07 PM EDT Performed at: [address] [place] [id number] Preventive Medicine Specialist: Vernon Garcia MD, Phone: [phone] Patient Fasting: N Faye Hector APRN LAB BLOOD ORDERABLES Final Res ult Performing Organization Address City/[facility]/ZIP Co de Phone Number [facility] (AMBULATORY) [address] [place] [address], [place] [phone] [facility] [address] [place] [address], [place] [phone] * Ferritin (04/09/2025 10:59 AM EDT) [facility] Ferritin 34.10 13.00 - 150.00 ng/mL [facility] Comment:Results may be false ly decreased if patient taking Biotin. Blood 04/09/2025 10:5 9 AM EDT 04/09/[address] [facility] (AMBULATORY) - 04/12/2025 10:07 PM EDT Performed at: [address] [place] [id number] Preventive Medicine Specialist: Vernon Garcia MD, Phone: [phone] Patient Fasting: N Faye Hector TRACK REPAIR WORKER LAB BLOOD ORDERABLES Final Res ult Performing Organization Address [facility]/ZIP Co de Phone Number [facility] [address] [place] [address], [facility] [address] [place] [address], * Copper, Serum (04/09/2025 10:59 AM EDT) Copper 111 80 - 158 ug/dL [facility] Comment:Detection Limit = 5 Blood 04/09/2025 10:5 9 AM EDT 04/09/2025 Narrative [facility] (AMBULATORY) - 04/12/2025 10:07 PM EDT Test(s) [id number], Serum or Plasma was developed and its performance characteristics determined by [facility]. It has not been cleared or approved by the Food and Drug Administration. Performed at: [address] [id number] Preventive Medicine Specialist: Yinka Suarez MD, Phone: [phone] Patient Fasting: N Faye Hector TRACK REPAIR WORKER LAB BLOOD ORDERABLES Final Res ult Performing Organization Address City/[facility] Co de Phone Number [facility] (AMBULATORY) [address] [place] [address], [facility] [address] [place] [address], * (ABNORMAL) Comprehensive Metabolic Panel (04/09/2025 10:59 AM EDT) Glucose 98 65 - 99 mg/dL [facility] BUN 7.0 6.0 - 20.0 mg/dL [facility] Creatinine 0.65 0.57 - 1.00 mg/dL [facility] EGFR Result 111.5 >60.0 mL/min/1.7 3 [facility] Comment: GFR Categories in Chronic Kidney Disease (CKD) GFR Category GFR (mL/min/1.73) Interpretation G1 90 or greater Normal or high (1) G2 60-89 Mild decrease (1) G3a 45-59 Mild to moderate decrease G3b 30-44 Moderate to severe decrease G4 15-29 Severe decrease G5 14 or less Kidney failure (1)In the absence of evidence of kidney disease, neither GFR category G1 or G2 fulfill the criteria for CKD. eGFR calculation 2020 CKD-EPI creatinine equation, which does not include race as a factor BUN/Creatinine Ratio 10.8 7.0 - 25.0 [facility] Sodium 145 136 - 145 mmol/L [facility] Potassium 3.8 3.5 - 5.2 mmol/L [facility] Chloride 108(H) 98 - 107 mmol/L [facility] Total CO2 27.9 22.0 - 29.0 mmol/L [facility] Calcium 9.0 8.6 - 10.5 mg/dL [facility] Total Protein 6.3 6.0 - 8.5 g/dL [facility] Albumin 4.1 3.5 - 5.2 g/dL [facility] Globulin 2.2 gm/dL [facility] A/G Ratio 1.9 g/dL [facility] Total Bilirubin 0.3 0.0 - 1.2 mg/dL [facility] Alkaline Phosphatase 141(H) 39 - 117 U/L [facility] AST (SGOT) 24 1 - 32 U/L [facility] ALT (SGPT) 23 1 - 33 U/L [facility] Blood 04/09/2025 10:5 9 AM EDT 04/09/2025 Narrative [facility] ([facility]ORY) - 04/12/2025 10:07 PM EDT Performed at: [address] [place] [id number] Preventive Medicine Specialist: Vernon Garcia MD, Phone: [phone] Patient Fasting: N us Faye Hector APRN LAB BLOOD ORDERABLES Final Res ult [facility] (AMBULATORY) [address] [place] [address], [place] [phone] [facility] [address] [place] [address], [place] [phone] * CBC & Differential (04/09/2025 10:59 AM EDT) Pathologist [facility] WBC 5.89 3.40 - 10.80 10*3/mm3 [facility] RBC 4.29 3.77 - 5.28 10*6/mm3 [facility] Hemoglobin 13.0 12.0 - 15.9 g/dL [facility] Hematocrit 38.9 34.0 - 46.6 % [facility] MCV 90.7 79.0 - 97.0 fL [facility] MCH 30.3 26.6 - 33.0 pg [facility] MCHC 33.4 31.5 - 35.7 g/dL [facility] RDW 12.8 12.3 - 15.4 % [facility] Platelets 257 140 - 450 10*3/mm3 [facility] Neutrophil Rel % 58.4 42.7 - 76.0 % [facility] Lymphocyte Rel % 30.2 19.6 - 45.3 % [facility] Monocyte Rel % 6.1 5.0 - 12.0 % [facility] Eosinophil Rel % 4.6 0.3 - 6.2 % [facility] Basophil Rel % 0.5 0.0 - 1.5 % [facility] Neutrophils Absolute 3.44 1.70 - 7.00 10*3/mm3 [facility] Lymphocytes Absolute 1.78 0.70 - 3.10 10*3/mm3 [facility] Monocytes Absolute 0.36 0.10 - 0.90 10*3/mm3 [facility] Eosinophils Absolute 0.27 0.00 - 0.40 10*3/mm3 [facility] Basophils Absolute 0.03 0.00 - 0.20 10*3/mm3 [facility] Immature Granulocyte Rel % 0.2 0.0 - 0.5 % [facility] Immature Grans Absolute 0.01 0.00 - 0.05 10*3/mm3 [facility] nRBC 0.0 0.0 - 0.2 /100 WBC [facility] Blood 04/09/2025 10:5 9 AM EDT 04/09/2025 Narrative [facility] (AMBULATORY) - 04/12/2025 10:07 PM EDT Performed at: [address] [place] [id number] Preventive Medicine Specialist: Vernon Garcia MD, Phone: [phone] Patient Fasting: N us Faye Hector TRACK REPAIR WORKER LAB BLOOD ORDERABLES Final Res ult [facility] (AMBULATORY) [address] [place] [address], [place] [phone] [facility] [address] [place] [address], [place] [phone] documented in this encounter Visit Diagnoses Diagnosis Obesity, Class III, BMI 40-49.9 (morbid obesity)- Primary Intestinal malabsorption, unspecified type Vitamin D deficiency Fatigue, unspecified type Abnormal blood level of iron Other abnormal blood chemistry documented in this encounter Care Teams Business Technology Professor Relationship Specialty Start Date End Date Rachel Mccrary PA PCP - General Physician Wrapper Cashier 01/05/22 documented as of this encounter
--- OUTSIDE RECORDS SUMMARY | 2025-04-23 15:13 | XMS_ITS | Encounter Summary ---
[facility] Address [address] [place] [address] Care Team Providers Care Auto Emissions Technician Name Role Phone Rachel Mccrary Primary Care Provider Encounter Details Date Type Department Care Team (Late st Contact Info) Description 04/15/2025 Results Follow-Up [facility] BARIATRIC SURGERY [address] [facility] [address] [place] [address] Kalpana Bedolla APRN [address] [place] [address] Social History Tobacco Use Types Packs/Day Years Used Date Smoking Tobacco: Never Smokeless Tobacco: Never Alcohol Use Standard Drinks/Week Comments Not Currently [...] or training? Not on file Preferred Language Welsh 01/27/2023 Comments No Sex and Gender Information Value Date Recorded Sex Assigned at Female 04/08/2025 12:20 PM EDT Legal Sex Female 11:57 AM EDT Gender Identity Not on file Sexual Orientation Straight 04/08/2025 12 :20 PM EDT documented as of this encounter Plan of Treatment Upcoming Encounters Date Type Department Care Team (Late st Contact Info) Description 10/15/2025 10:30 AM EST Office Visit [facility] BARI[facility]RIC [facility]GERY [address] [address] Kalpana Bedolla, MANAGER PUBLISHING [address] [place] [address] documented as of this encounter Visit Diagnoses Not on filedocumented in this encounter Care Teams Auto Emissions Technician Relationship Specialty Start Date End Date Rachel Mccrary PA PCP - General Physician Upper Trimmer 01/05/22 documented as of this encounter
--- OUTSIDE RECORDS SUMMARY | 2025-04-23 15:13 | XMS_ITS | Clinical Summary ---
Author Organization [facility] Address [address] [place] [address] Care Team Providers Care Liner Machine Operator Name Role Phone Rachel Mccrary Primary Care Provider [phone] Social History Tobacco Use Types Packs/Day Years Used Date Smoking Tobacco: Never Assessed Comments Unknown Sex and Gender Information Value Date Recorded Sex Assigned at Not on file Legal Sex Female 7:39 PM EDT Gender Identity Not on file Sexual Orientation Not on file Plan of Treatment Health Maintenance Due Date Last Done Comments [facility]-Depression Screening 1980 [facility]-/Child/Adol SDOH Screenings 1980 [facility]-Varicella Vaccines (1 of 2 - 13+ 2-dose series) 1993 HPV Vaccines (1 - 3-dose series) 11/19/1995 [facility]- SDOH Screenings 1998 [facility]-Adult SDOH Screenings 1998 [facility]-DTaP,Tdap,and Td Vaccine s (1 - Tdap) 11/19/1999 [facility]-Hepatitis B Vaccines (1 of 3 - 19+ 3-dose series) 11/19/1999 [facility]-Pap Smear 2001 [facility]-Cervical Cancer Screening 2010 [facility]-HPV/Cotest 2010 ZAN-[id number]-07 Vaccine (2 - 20 24-25 season) 2024 11/26/2020 [facility]-Influenza Vaccine (#1) 2025 07/14/2018 [facility]-Zoster Vaccines (1 of 2) 2030 [facility]-HIB Vaccines Aged Out No longer e ligible based on patient's age to complete this topic [facility]-Hepatitis A Vaccines Aged Out No longer eligible based on patient's age to complete this topic [facility]-IPV Vaccines Aged Out No longer e ligible based on patient's age to complete this topic [facility]-Pneumococcal Vaccine: Pediatrics (0 to 5 Years) and At-Risk Patients (6 to 49 Years) Aged Out No long er eligible based on patient's age to complete this topic [facility]-Rotavirus Vaccines Aged Out No lo nger eligible based on patient's age to complete this topic Insurance [employer] Care Teams Liner Machine Operator Relationship Specialty Start Date End Date Rachel Mccrary PA [address] [place] [address] PCP - General 01/30/21
--- OUTSIDE RECORDS SUMMARY | 2025-04-23 15:13 | XMS_ITS | Clinical Summary ---
Author Organization [facility] Address [address] [place] [address] Care Team Providers Care Furnace Brazer Name Role Phone Rachel Mccrary Primary Care Provider [phone] Allergies Active Allergy Reactions Criticality Noted Date Comments Cephalexin Anaphylaxis High 08/21/2009 Estradiol Hives Medium 01/11/2013 patch - adhesive rxn Iodine Rash Low 08/21/[address] scan Penicillins Rash High 11/17/2006 Shellfish-Derived Products Unknown - Low Severity 10/12/2022 Scratchy throat Sulfa Antibiotics Rash Low 11/17/2006 Medications * This document contains information received from the source organization and may not represent a complete record from that organization. multivitamin with minerals tablet tablet Take 1 tablet by mouth Daily. Active multivitamin with minerals (MULTIPLE VITAMINS/WOMENS PO) Take 1 tablet by mouth Daily. Active Vitamin D-Vitamin K (VITAMIN K2-VITAMIN D3 PO) Take 1 tablet by mouth Daily. 90mcg + 5000 IU Active vitamin B-12 (CYANOCOBALAMIN ) 1000 MCG tablet Take 2 tablets by mouth Daily. Active Vitamin A ([facility] Vitamin A) 2400 MCG (8000 UT) capsule Take 2 capsules by mouth Daily. Active Calcium-Magnesi um-Zinc 333-133-5 MG tablet Take 1 tablet by mouth Daily. Active VITAMIN E 400 UNIT capsule Take 2 capsules by mouth Daily. Active vitamin D3 125 MCG (5000 UT) capsule capsule Take 2 capsules by mouth Daily. Active Magnesium 250 MG tablet Take 1 tablet by mouth Daily. Active thiamine (VITAMIN B-1) 250 MG tablet tablet Take 2 tablets by mouth Daily. Active ferrous sulfate 325 (65 FE) MG tablet Take 1 tablet by mouth Daily With Breakfast. Active Desiccated Beef Liver powder Take 6 tablets by mouth Daily. Active Calcium Carbonate-Vit D-Min (Calcium 1200) 7385-6672 MG-UNIT chewable tablet Chew 1,200 mg Daily. 90 each 4 Active Additional Information Patient not taking.Reported on 04/09/2025 cyanocobalamin 1000 MCG/ML injection Inject 1 mL into the appropriate muscle as directed by prescriber Daily for 14 days. 14 mL 5 04/29/20 25 Active cholecalciferol (VITAMIN D3) 1.25 MG (36989 UT) capsule Take 1 capsule by mouth Every 7 (Seven) Days. 12 capsule 5 Active Syringe/Needle, Disp, 25G X 1 3 ML misc Use 1 mL Daily. Inject 1 mL under the skin into the appropriate area as directed Daily. 14 each 5 Active potassium phosphate, monobasic, (K-Phos) 500 MG tablet Take 1 tablet by mouth 2 (Two) Times a Day for 7 days. Dissolve tablet in 6oz water to avoid GI upset. 14 tablet 5 04/22/20 25 Active Problems Problem Noted Date Diagnosed Date Body mass index (BMI) of 60.0-69.9 in adult 12/19 Overview (01/10/2023): Added automatically from request for surgery [id number] Morbid obesity with body mas s index (BMI) of 60.0 to 69.9 in adult 01/04/2023 Weight gain status post gastric bypass 3 Hypertension 01/19/2022 Heartburn 01/19/2022 Overview (01/19/2022): chornic, episodic; Alkaseltezer PRN;Remote EGD; no hx h pylori KELLEE on CPAP 01/19/2022 Dyspepsia 01/19/2022 Diarrhea 01/19/2022 Stress incontinence of urine 01/19/2022 Chronic back pain 01/19/2022 Overview (01/19/2022): PRN tylenol, nsaids; no steroids Arthralgia of both knees 01/19/2022 Overview (01/19/2022): prn tylenol, nsaids Numbness and tingling of both upper extremities 01/19/2022 Chronic headaches 01/19/2022 Anxiety and depression 01/19/2022 Endometriosis 01/19/2022 Overview (01/19/2022): s/p lap total hysterectomy 2011 PCOS (polycystic ovarian syndrome) 01/19/2022 Iron deficiency anemia 01/19/2022 Overview (01/19/2022): hx of blood transfusion S/P gastric bypass 01/19/2022 History of blood transfusion 09/19/2009 Overview (01/19/2022): prior to delivery S/P laparoscopic cholecystectomy 09/19/2002 Overview (01/19/2022): gallstones Encounters Date Type Department Care Team Description 04/15/2025 Results Follow-Up [facility] [address] [place] [address] Kalpana Bedolla APRN 04/09/2025 10:30 AM EDT Office Visit [facility] [address] [place] [address] Kalpana Bedolla APRN Obesity, Class III, BMI 40-49.9 (morbid obesity) (Primary Dx); Intestinal malabsorption, unspecified type; Vitamin D deficiency; Fatigue, unspecified type; Abnormal blood level of iron 04/09/2025 Travel from Last 3 Months Family History Medical History Relation Name Comments Diabetes Father Anshul Heart disease Father Anshul Hypertension Father Anshul Obesity Father Anshul Sleep apnea Father Anshul Hypertension Maternal Grandfather Vincent Stroke Maternal Grandmother Diabetes Mother Justine Obesity Mother Justine Cancer Paternal Grandfather Anshul Hypertension Paternal Grandfather Anshul Obesity Paternal Grandfather Anshul Cancer Paternal Grandmother Rosalie Hypertension Paternal Grandmother Rosalie Obesity Paternal Grandmother Rosalie Bleeding Disorder Son Danis Relation Name Status Comments Father Anshul Maternal Grandfather Vincent Maternal Grandmother Mother Justine Paternal Grandfather Anshul Paternal Grandmother Rosalie Son Danis Social History Tobacco Use Types Packs/Day Years [...] or training? Not on file Preferred Language Anguillan 01/27/2023 Comments No Sex and Gender Information Value Date Recorded Sex Assigned at Female 04/08/2025 12:20 PM EDT Legal Sex Female 11:57 AM EDT Gender Identity Not on file Sexual Orientation Straight 04/08/2025 12 :20 PM EDT Last Filed Vital Signs Vital Sign Reading [...] Mass Index 48.23 04/09/2025 10:27 AM EDT Plan of Treatment Upcoming Encounters Date Type Department Care Team (Late st Contact Info) Description 10/15/2025 10:30 AM EST Office Visit [facility] [address] [place] [address] Kalpana Bedolla, PAYROLL SUPERVISOR [address] [place] [address] Health Maintenance Due Date Last Done Comments Annual Gynecologic Pelvic an d Breast Exam 1980 TDAP/TD VACCINES (1 - Tdap) 11/19/1999 MAMMOGRAM 2020 ANNUAL PHYSICAL 01/19/2022 HEPATITIS C SCREENING 01/19/2022 COVID-19 Vaccine (2 - 2023-2 5 season) 2024 11/26/2020 INFLUENZA VACCINE 06/19/2025 07/14/2018 Pneumococcal Vaccine 0-49 Aged Out No longer eligible based on patient's age to complete this topic Medical Devices Implanted Type Area Corporate Law Specialist Device Identifier Shelf Expiration Date Model / Serial / Lot Stplr Tiss [id number] Lng [id number] Strl 1p/U - [id number] Implanted:Qty : 1 on 02/03/2023 by Julius Ventura MD at [facility] Implant N/A: Abdomen [employer] DIV OF J AND J [id number] 08/18/2025 [id number] / / [id number] Reload Stplr Vega Flex Gst Stnd 60 Wht - [id number] Implanted:Qty : 1 on 02/03/2023 by Julius Ventura MD at [facility] Implant N/A: Abdomen [employer] DIV OF J AND J [id number] 04/18/2025 [id number] / / [id number] Dev Cls Wnd Vloc/Pbt Silvia Nonabs 1/2cir Sz2/0 26mm 15cm Phill - [id number] Implanted:Qty : 1 on 02/03/2023 by Julius Ventura MD at [facility] Implant N/A: Abdomen COVIDIEN [id number] 11/16/2025 [id number] / / [id number] Dev Contrl Tiss Stratafix Spiral Pds Pls 3/0 0 15cm Joss - [id number] Implanted:Qty : 1 on 02/03/2023 by Julius Ventura MD at [facility] Implant N/A: Abdomen [employer] DIV OF J AND J 10/19/2024 [id number] / / [id number] Reload Stplr Vega Flex Gst Stnd 60 Wht - [id number] Implanted:Qty : 1 on 02/03/2023 by Julius Ventura MD at [facility] Implant N/A: Abdomen [employer] DIV OF AND J [id number] 04/18/2025 [id number] / / [id number] Reload Stplr Vega Flex Gst Stnd 60 Wht - [id number] Implanted:Qty : 1 on 02/03/2023 by Julius Ventura MD at [facility] Implant N/A: Abdomen [employer] DIV OF J AND J 04/18/2025 [id number] / / [id number] Dev Contrl Tiss Stratafix Spiral Pds Pls 3/0 0 15cm Joss - [id number] Implanted:Qty : 1 on 02/03/2023 by Julius Ventura MD at [facility] Implant N/A: Abdomen [employer] DIV OF J AND J 10/19/2024 [id number] / / [id number] Reload Stplr Vega Flex Gst Stnd 60 Wht - [id number] Implanted:Qty : 1 on 02/03/2023 by Julius Ventura MD at [facility] Implant N/A: Abdomen [employer] DIV OF J AND J [id number] 04/18/2025 [id number] / / [id number] Reload Stplr Vega Flex Gst Stnd 60 Wht - [id number] Implanted:Qty : 1 on 02/03/2023 by Julius Ventura MD at [facility] Implant N/A: Abdomen [employer] DIV OF J AND J [id number] 04/18/2025 [id number] / / [id number] Reload Vega Flex Gst Xthk 4.2mm Blk - [id number] Implanted:Qty : 1 on 02/03/2023 by Julius Ventura MD at [facility] Implant N/A: Abdomen [employer] DIV OF J AND J [id number] 11/16/2024 [id number] / / [id number] Dev Cls Wnd Vloc/Pbt Silvia Nonabs 1/2cir Sz2/0 26mm 15cm Phill - [id number] Implanted:Qty : 1 on 02/03/2023 by Julius Ventura MD at [facility] Implant N/A: Abdomen COVIDIEN [id number] 11/16/2025 [id number] / / [id number] Dev Contrl Tiss Stratafix Spiral Pds Pls 3/0 0 15cm Joss - [id number] Implanted:Qty : 1 on 02/03/2023 by Julius Ventura MD at [facility] Implant N/A: Abdomen [employer] DIV OF J AND J 10/19/2024 [id number] / / [id number] Dev Contrl Tiss Stratafix Spiral Pds Pls 3/0 0 15cm Joss - [id number] Implanted:Qty : 1 on 02/03/2023 by Julius Ventura MD at [facility] Implant N/A: Abdomen [employer] DIV OF J AND J 09/21/2024 [id number] / / [id number] Reload Vega Flex Gst Thk 4.1mm Grn - [id number] Implanted:Qty : 1 on 02/03/2023 by Julius Ventura MD at [facility] Implant N/A: Abdomen [employer] DIV OF J AND J [id number] 09/18/2025 [id number] / / [id number] Reload Stplr Vega Flex Gst Stnd 60 [facility] - [id number] Implanted:Qty : 1 on 02/03/2023 by Julius Ventura MD at [facility] Implant N/A: Abdomen [employer] DIV OF J AND J [id number] 04/18/2025 [id number] / / [id number] Procedures Procedure Name Priority Date/Time Associated Diagnosis Comments CBC AND DIFFERENTIAL Routine 04/09/2025 10:59 AM [...] unspecified type Abnormal blood level of iron METHYLMALONIC ACID, SERUM Routine 04/09/2025 10:59 AM [...] unspecified type Abnormal blood level of iron from Last 3 Months Results * Methylmalonic Acid, Serum (04/09/2025 10:59 AM EDT) Methylmalonic Acid 318 0 - 378 nmol/L [facility] Blood 04/09/2025 10:5 9 AM EDT 04/09/2025 [place] [facility] (AMBULATORY) - 04/12/2025 10:07 PM EDT Test(s) 123944-Hqfpjqyvhjgpq Acid, Serum was developed and its performance characteristics determined by [facility]. It has not been cleared or approved by the Food and Drug Administration. Performed at: 03 - [address] [id number] Tractor Sweeper Driver: Yinka Suarez MD, Phone: [phone] Patient Fasting: N us Kalpana Bedolla APRN LAB BLOOD ORDERABLES Final Res ult [facility] ([facility]BULATORY) [address] [place] [address], [place] [phone] [facility] [address] [place] [id number], [place] [phone] * Copper, Serum (04/09/2025 10:59 AM EDT) Pathologist [facility] Copper 111 80 - 158 ug/dL [facility] Comment:Detection Limit = 5 Blood 04/09/2025 10:5 9 AM EDT 04/09/2025 [facility] - 04/12/2025 10:07 PM EDT Test(s) 741010-Esaubq, Serum or Plasma was developed and its performance characteristics determined by [facility]. It has not been cleared or approved by the Food and Drug Administration. Performed at: [address] [place] [id number] Tractor Sweeper Driver: Yinka Suarez MD, Phone: [phone] Patient Fasting: N Kalpana Bedolladebbie [facility]ANT[facility] LAB BLOOD ORDERABLES Final Res ult Performing Organization Address [facility] de Phone Number [facility] [address] [place] [address], [facility] [address] [place] [address], [place] [phone] * Vitamin B1, Whole Blood (04/09/2025 10:59 AM EDT) Pathologist [facility] Vitamin B1, Whole Blood 144.3 66.5 - 200.0 nmol/L [facility] Blood 04/09/2025 10:5 9 AM EDT 04/09/2025 [facility] (AMBUL[facility]ORY) - 04/12/2025 10:07 PM EDT Test(s) 526442-Jty. B1, Whole Blood was developed and its performance characteristics determined by [facility]. It has not been cleared or approved by the Food and Drug Administration. Performed at: 03 - [address] [id number] Tractor Sweeper Driver: Yinka Suarez MD, Phone: [phone] Patient Fasting: N atokore PAYROLL SUPERVISOR LAB BLOOD ORDERABLES Final Res ult Performing Organization Address [facility]/ZIP Co de Phone Number [facility] [address] [place] [address], [facility] [address] [place] [address], * Zinc (04/09/2025 10:59 AM EDT) Zinc 58 44 - 115 ug/dL [facility] Comment:Detection Limit = 5 Blood 04/09/2025 10:5 9 AM EDT 04/09/2025 Narrative [facility] - 04/12/2025 10:07 PM EDT Test(s) 548114-Uwqj, Plasma or Serum was developed and its performance characteristics determined by [facility]. It has not been cleared or approved by the Food and Drug Administration. Performed at: [address] [id number] Tractor Sweeper Driver: Yinka Suarez MD, Phone: [phone] Patient Fasting: N Kalpana Bedolla APRN LAB BLOOD ORDERABLES Final Res ult [facility] [address] [place] [address], [facility] [address] [place] [address], * Vitamin A (04/09/2025 10:59 AM EDT) Vitamin A 26.2 20.1 - 62.0 ug/dL [facility] Comment: Reference intervals for vitamin A determined from [facility] internal studies. Individuals with vitamin A less than 20 ug/dL are considered vitamin A deficient and those with serum concentrations less than 10 ug/dL are considered severely deficient. This test was developed and its performance characteristics determined by [facility]. It has not been cleared or approved by the Food and Drug Administration. Blood 04/09/2025 10:5 9 AM EDT 04/09/2025 Narrative [facility] - 04/12/2025 10:07 PM EDT Performed at: [address] [place] [id number] Tractor Sweeper Driver: Yinka Suarez MD, Phone: [phone] Patient Fasting: N Kalpana Bedolla APRN LAB BLOOD ORDERABLES Final Res ult Performing Organization Address [facility] Co de Phone Number [facility] (AMBUL[facility]) [address] [place] [address], [place] [phone] [facility] [address] [place] [address], * (ABNORMAL) Vitamin K1 (04/09/2025 10:59 AM EDT) Vitamin K <0.10(L) 0.10 - 2.20 ng/mL [facility] Blood 04/09/2025 10:5 9 AM EDT 04/09/2025 Narrative [facility] (AMBULATORY) - 04/12/2025 10:07 PM EDT Test(s) 522426-Iplkqvq K1 was developed and its performance characteristics determined by [facility]. It has not been cleared or approved by the Food and Drug Administration. Performed at: [address] [place] [id number] Tractor Sweeper Driver: Yinka Suarez MD, Phone: [phone] Patient Fasting: N Kalpana Bedolla APRN LAB BLOOD ORDERABLES Final Res ult Performing Organization Address [facility] de Phone Number [facility] (AMBUL[facility]) [address] [place] [address], [place] [phone] [facility] [address] [place] [address], * (ABNORMAL) Vitamin D,25-Hydroxy (04/09/2025 10:59 AM EDT) 25 Hydroxy, Vitamin D 8.9(L) 30.0 - 100.0 ng/ml [facility] Comment: Reference Range for Total Vitamin D 25(OH) Deficiency <20.0 ng/mL Insufficiency 21-29 ng/mL Sufficiency 30-100 ng/mL Toxicity >100 ng/ml Blood 04/09/2025 10:5 9 AM EDT 04/09/2025 Narrative [facility] ([facility]) - 04/12/2025 10:07 PM EDT Performed at: [place] [address] [place] [id number] Tractor Sweeper Driver: Vernon Garcia MD, Phone: [phone] Patient Fasting: N Kaplana Bedolla PAYROLL SUPERVISOR LAB BLOOD ORDERABLES Final Res ult [facility] ([facility]) [address] [place] [address], [place] [phone] [facility] [address] [place] [address], [place] [phone] * Protime-INR (04/09/2025 10:59 AM EDT) Pathologist [facility] INR 0.96 0.89 - 1.12 [facility] Comment: Therapeutic Ranges for INR:/X09/2.0-3.0 (PT 20-30) 2.5-3.5 (PT 25-34) Protime 13.4 12.2 - 15.3 Seconds [facility] Blood 04/09/2025 10:5 9 AM EDT 04/09/2025 Narrative [facility] ([facility]) - 04/12/2025 10:07 PM EDT Performed at: [address] [id number] Tractor Sweeper Driver: Kenneth Cha MD, Phone: [phone] Patient Fasting: N Kalpana Bedolla PAYROLL SUPERVISOR LAB BLOOD ORDERABLES Final Res ult [facility] ([facility]) [address] [place] [address], [place] [phone] [facility] [address] [place] [address], [place] [phone] * CBC & Differential (04/09/2025 10:59 AM EDT) WBC 5.89 3.40 - 10.80 10*3/mm3 [facility] [...] - 04/12/2025 10:07 PM EDT Performed at: [address] [place] [id number] Tractor Sweeper Driver: Vernon Garcia MD, Phone: [phone] Patient Fasting: N Kalpana Bedolla APRN LAB BLOOD ORDERABLES Final Res ult Performing Organization Address City/[facility]/ZIP Co de Phone Number [facility] [address] [place] [address], [place] [phone] [facility] [address] [place] [address], * Vitamin E (04/09/2025 10:59 AM EDT) Vitamin E (Alpha Tocopherol) 8.0 7.0 - 25.1 mg/L [facility] Vitamin E (Gamma Tocopherol) 0.5 0.5 - 5.5 mg/L [facility] Comment: Reference intervals for alpha and gamma-tocopherol determined from National Health and Nutrition Examination Survey, 0492-0806. Individuals with alpha-tocopherol levels less than 5.0 mg/L are considered vitamin E deficient. Blood 04/09/2025 10:5 9 AM EDT 04/09/2025 Narrative [facility] - 04/12/2025 10:07 PM EDT Test(s) 231387-Xfpyxvs E(Alpha Tocopherol); 006550- Vitamin E(Gamma Tocopherol) was developed and its performance characteristics determined by [facility]. It has not been cleared or approved by the Food and Drug Administration. Performed at: 03 - [address] [id number] Tractor Sweeper Driver: Yinka Suarez MD, Phone: [phone] Patient Fasting: N us Kalpana Bedolla APRN LAB BLOOD ORDERABLES Final Res ult [facility] [address] [place] [address], [facility] [address] [place] [address], * Prealbumin (04/09/2025 10:59 AM EDT) Prealbumin 18 12 - 34 mg/dL [facility] Blood 04/09/2025 10:5 9 AM EDT 04/09/2025 Narrative [facility] ([facility]) - 04/12/2025 10:07 PM EDT Performed at: [address] [place] [address] [address] [place], [place] [id number] Tractor Sweeper Driver: Bradley Guerra PhD, Phone: [phone] Patient Fasting: N Kalpana Bedolla [facility] LAB BLOOD ORDERABLES Final Res ult Performing Organization Address [facility] Co de Phone Number [facility] [address] [place] [address], [place] [phone] [facility] [address] [place] [address], [place] [phone] * (ABNORMAL) Phosphorus (04/09/2025 10:59 AM EDT) Phosphorus 2.4(L) 2.5 - 4.5 mg/dL [facility] Blood 04/09/2025 10:5 9 AM EDT 04/09/2025 Narrative [facility] ([facility]) - 04/12/2025 10:07 PM EDT Performed at: [address] [place] [id number] Tractor Sweeper Driver: Vernon Garcia MD, Phone: [phone] Patient Fasting: N Kalpana Bedolla APRN LAB BLOOD ORDERABLES Final Res ult Performing Organization Address [facility] Co de Phone Number [facility] ([facility]UL[facility]) [address] [place] [address], [place] [phone] [facility] [address] [place] [address], [place] [phone] * PTH, Intact (04/09/2025 10:59 AM EDT) PTH, Intact 39 15 - 65 pg/mL [facility] Blood 04/09/2025 10:5 9 AM EDT 04/09/2025 Narrative [facility] ([facility]) - 04/12/2025 10:07 PM EDT Performed at: [address] [place] [address] [address] [place], [place] [id number] Tractor Sweeper Driver: Bradley Guerra PhD, Phone: [phone] Patient Fasting: N Kalpana Bedolla PAYROLL SUPERVISOR LAB BLOOD ORDERABLES Final Res ult Performing Organization Address [facility] Co de Phone Number [facility] [address] [place] [address], [facility] [address] [place] [address], * Magnesium (04/09/2025 10:59 AM EDT) Magnesium 1.9 1.6 - 2.6 mg/dL [facility] Blood 04/09/2025 10:5 9 AM EDT 04/09/2025 Narrative [facility] ([facility]) - 04/12/2025 10:07 PM EDT Performed at: [address] [place] [id number] Tractor Sweeper Driver: eVrnon Garcia MD, Phone: [phone] Patient Fasting: N Kalpana Bedolla APRN LAB BLOOD ORDERABLES Final Res ult Performing Organization Address [facility] de Phone Number [facility] ([facility]UL[facility]) [address] [place] [address], [facility] [address] [place] [address], * Iron (04/09/2025 10:59 AM EDT) Iron 64 37 - 145 mcg/dL [facility] Blood 04/09/2025 10:5 9 AM EDT 04/09/2025 Narrative [facility] ([facility]) - 04/12/2025 10:07 PM EDT Performed at: [address] [place] [id number] Tractor Sweeper Driver: Vernon Garcia MD, Phone: [phone] Patient Fasting: N Kalpana Grimaldoks PAYROLL SUPERVISOR LAB BLOOD ORDERABLES Final Res ult Performing Organization Address [facility]/ZIP Co de Phone Number [facility] ([facility]) [address] [place] [address], [place] [phone] [facility] [address] [place] [address], [place] [phone] * Folate (04/09/2025 10:59 AM EDT) Folate 16.10 4.78 - 24.20 ng/mL [facility] Comment:Results may be false ly increased if patient taking Biotin. Blood 04/09/2025 10:5 9 AM EDT 04/09/2025 Narrative [facility] (AM[facility]UL[facility]) - 04/12/2025 10:07 PM EDT Performed at: [address] [place] [id number] Tractor Sweeper Driver: Vernon Garcia MD, Phone: [phone] Patient Fasting: N us Kalpana Bedolla PAYROLL SUPERVISOR LAB BLOOD ORDERABLES Final Res ult Performing Organization Address [facility]/ZIP Co de Phone Number [facility]) [address] [place] [address], [place] [phone] [facility] [address] [place] [address], [place] [phone] * Ferritin (04/09/2025 10:59 AM EDT) Pathologist [facility] Ferritin 34.10 13.00 - 150.00 ng/mL [facility] Comment:Results may be false ly decreased if patient taking Biotin. Blood 04/09/2025 10:5 9 AM EDT 04/09/2025 Narrative [facility] (AMBUL[facility]) - 04/12/2025 10:07 PM EDT Performed at: [address] [place] [id number] Tractor Sweeper Driver: Vernon Garcia MD, Phone: [phone] Patient Fasting: N us Kalpana Bedolla PAYROLL SUPERVISOR LAB BLOOD ORDERABLES Final Res ult [facility] ([facility]) [address] [place] [address], [place] [phone] [facility] [address] [place] [address], [place] [phone] * (ABNORMAL) Comprehensive Metabolic Panel (04/09/2025 10:59 [...] 10:5 9 AM EDT 04/09/2025 Narrative [facility] ([facility]) - 04/12/2025 10:07 PM EDT Performed at: [address] [place] [id number] Tractor Sweeper Driver: Vernon Garcia MD, Phone: [phone] Patient Fasting: N us Kalpana Bedolla PAYROLL SUPERVISOR LAB BLOOD ORDERABLES Final Res ult [facility] ([facility]) [address] [place] [id number], [facility] [address] [place] [address], [place] [phone] from Last 3 Months [facility] Member Subscriber Plan / Payer (Ef fective 2022-Present) Name:Cece London Relation to Subscriber:Spouse Name:THEA LONDON Date of :1976 (Home) Address: [address] [place] [address] Payer ID:[id number] (NAIC) Type:Not on file Address: [facility] [id number] [place] [id number] Advance Directives * CPR (Attempt to Resuscitate) (Latest Code Status on File) Date Activated Date Inactivated Comments 02/03/2023 4:23 PM 02/06/2023 4:40 PM Question Answer Comments Code Status (Patient has no pulse and is not breathing): CPR (Attempt to Resuscitate) Medical Interventions (Patie nt has pulse or is breathing): Full Support Level Of Support Discussed With: Patient Release to patient: Routine Release Care Teams Furnace Brazer Relationship Specialty Start Date End Date Rachel Mccrary PA PCP - General Physician Hvac Mechanical Engineer 01/05/22
--- OUTSIDE RECORDS SUMMARY | 2025-04-23 15:13 | XMS_ITS | Encounter Summary ---
[facility] Address [address] [place] [address] Care Team Providers Care Restaurant Team Member Name Role Phone Rachel Mccrary Primary Care Provider [phone] Reason for Visit * Reason Comments Med Refill Encounter Details Date Type Department Care Team (Late st Contact Info) Description 10/12/[address] [facility] [address] [place] [address] Anh Agustin PA [address] [place], [place] [id number] Social History Tobacco Use Types Packs/Day Years [...] or training? Not on file Preferred Language Pashto 01/27/2023 Comments No Sex and Gender Information Value Date Recorded Sex Assigned at Female 04/08/2025 12:20 PM EDT Legal Sex Female 11:57 AM EDT Gender Identity Not on file Sexual Orientation Straight 04/08/2025 12 :20 PM EDT documented as of this encounter Miscellaneous Notes * Telephone Encounter - Mary Schuster MA - 10/12/2023 11:48 AM EST [employer] Message was sent to pt. documented in this encounter Plan of Treatment Upcoming Encounters Date Type Department Care Team (Late st Contact Info) Description 10/15/2025 10:30 AM EST Office Visit [facility] [address] [facility] [address] [place] [address] Kalpana Bedolla APRN [address] [id number] documented as of this encounter Visit Diagnoses Not on filedocumented in this encounter Additional Health Concerns Infection Onset Date Last Indicated Resolved Time C.difficile (rule out) 11/15/2023 11/15/202311/19 9:08 PM EST documented as of this encounter Care Teams Restaurant Team Member Relationship Specialty Start Date End Date Rachel Mccrary PA PCP - General Physician Spreader 01/05/22 documented as of this encounter
--- OUTSIDE RECORDS SUMMARY | 2025-04-23 15:13 | XMS_ITS | Encounter Summary ---
[facility] Address [address] [place] [address] Care Team Providers Care Door Assembler Name Role Phone Rachel Mccrary Primary Care Provider [phone] Encounter Details Date Type Department Care Team (Latest Contact Info) Description 04/09/2025 Travel Social History Tobacco Use Types Packs/Day Years [...] or training? Not on file Preferred Language Tamazight 01/27/2023 Comments No Sex and Gender Information Value Date Recorded Sex Assigned at Female 04/08/2025 12:20 PM EDT Legal Sex Female 11:57 AM EDT Gender Identity Not on file Sexual Orientation Straight 04/08/2025 12 :20 PM EDT documented as of this encounter Plan of Treatment Upcoming Encounters Date Type Department Care Team (Late st Contact Info) Description 10/15/2025 10:30 AM EST Office Visit [facility] [address] [address] Kalpana Bedolla APRN [address] [place] [id number] documented as of this encounter Visit Diagnoses Not on filedocumented in this encounter Care Teams Door Assembler Relationship Specialty Start Date End Date Rachel Mccrary PA PCP - General Physician Editor Publications 01/05/22 documented as of this encounter
== END 2025-04-23 23:59 | disposition home or self-care (01) ==
LOC: RAD 15:09
PROVIDERS: PCP Physician Assistant; Visit Provider Physician Assistant
DX: Z12.31 Encounter for screening mammogram for malignant neoplasm of breast (principal)
CPT/HCPCS: 77063; 77067